=== PATIENT | female | born 1950 | race African-American/Black ===

== ENCOUNTER 2016-11-02 13:08 | Emergency (ER) | payer MEDICARE, OTHER ==
[2016-11-02 13:21] VITALS: BP 157/88
--- NOTE | 2016-11-02 13:50 | ER Document Report ---
HPI - HPI Patient complains to provider of: rash Onset: Other Onset/Duration: Sudden Quality of pain: Burning Severity: Mild Pain Level: 1 Context: Patient thinks she was bitten by something on her right posterior leg 3 days and now has a rash on her right leg, buttocks and abdomen. Rash is itchy. Associated Symptoms: None Exacerbated by: Denies Relieved by: Denies Similar symptoms previously: No Recently seen / treated by doctor: No - ROS ROS below otherwise negative: Yes Systems Reviewed and Negative: Yes All other systems reviewed and negative - CONSTITUTIONAL Constitutional: DENIES: Fever - EENT EENT: DENIES: Congestion - NEURO Neurology: DENIES: Headache - CARDIOVASCULAR Cardiovascular: DENIES: Chest pain - RESPIRATORY Respiratory: DENIES: Trouble Breathing - GASTROINTESTINAL Gastrointestinal: DENIES: Abdominal Pain - URINARY Urinary: DENIES: Dysuria - MUSCULOSKELETAL Musculoskeletal: DENIES: Extremity pain - DERM Skin Color: Normal Skin Problems: Rash Past Medical History - General Information source: Patient - Social History Smoking Status: Never Smoker Frequency of alcohol use: Occasional Drug Abuse: None Lives with: Spouse/Significant other Family History: Reviewed & Not Pertinent Patient has suicidal ideation: No Patient has homicidal ideation: No - Past Medical History Cardiac Medical History: Reports: Hx Hypertension Past Surgical History: Reports: Hx Orthopedic Surgery, Hx Tubal Ligation Vertical Provider Document - CONSTITUTIONAL Agree With Documented VS: Yes Exam Limitations: No Limitations General Appearance: WD/WN, No Apparent Distress - INFECTION CONTROL TRAVEL OUTSIDE OF THE [place] IN LAST 30 DAYS: No - HEENT HEENT: Atraumatic, Normocephalic - RESPIRATORY Respiratory: Breath Sounds Normal, No Respiratory Distress O2 Sat by Pulse Oximetry: 99 - CARDIOVASCULAR Cardiovascular: Regular Rate, Regular Rhythm - GI/ABDOMEN Gastrointestinal: Abdomen Soft, Abdomen Non-Tender - MUSCULOSKELETAL/EXTREMETIES Musculoskeletal/Extremeties: MAEW - NEURO Level of Consciousness: Awake, Alert, Appropriate - DERM Integumentary: Warm, Dry, Rash - Papular rash noted to right leg, buttocks, and abdomen. Excoriated area to posterior right knee. No surrounding erythema. Course - Vital Signs Vital signs: Temp Pulse Resp BP Pulse Ox 98.8 F 76 18 157/88 H 99 11/02/16 13:18 11/02/16 13:18 11/02/16 13:18 11/02/16 13:18 11/02/16 13:18 Discharge - Discharge Clinical Impression: Rash and nonspecific skin eruption Condition: Good Disposition: HOME, SELF-CARE Additional Instructions: take meds as prescribed bactroban ointment to lesion back of right knee, keep clean and dry OTC hydrocortisone to rest of rash follow up with your doctor next week for recheck return if worsens and as needed Prescriptions: Mupirocin [Bactroban 2% Ointment 22 gm] 1 applic TP TID #1 tube Prednisone [Deltasone 10 mg Tablet] 10 mg PO ASDIR PRN #21 tablet PRN Reason: Referrals: PRASHANTH NUNN MD [Primary Care Provider] - Follow up as needed
== END 2016-11-02 14:15 | disposition home or self-care (01) ==
LOC: ER 13:08
DX: R21 Rash and other nonspecific skin eruption (principal); M79.604 Pain in right leg
CPT/HCPCS: 99281

== ENCOUNTER 2018-07-18 13:50 | Emergency (ER) | payer MEDICARE, OTHER ==
[2018-07-18 14:06] VITALS: BP 147/95
[2018-07-18] MEDS ORDERED: IBUPROFEN 600 MG TABLET PO ONE (15:05)
--- NOTE | 2018-07-18 15:07 | ER Document Report ---
HPI - HPI Time Seen by Provider: 07/18/18 14:56 Pain Level: 2 Context: Patient is a 68-year-old's emergency department with a chief complaint of a possible boil in her jaw. She states that she has had pain for the past 5 days and has tried peroxide, mouthwashes, and an onion to help relieve her pain. She has not had any relief. She has not taken any ibuprofen or Tylenol today. She has been taking Aleve and ibuprofen at home. Has not had any relief from that. Does not have history of abscesses in the past. She denies any tooth pain, fever, shortness of breath, difficulty breathing, or any other symptoms. - CONSTITUTIONAL Constitutional: DENIES: Fever, Chills - EENT EENT: REPORTS: Eye problems. DENIES: Sore Throat, Ear Pain, Nasal Drainage- Clear, Congestion - NEURO Neurology: DENIES: Headache - RESPIRATORY Respiratory: DENIES: Trouble Breathing, Coughing - GASTROINTESTINAL Gastrointestinal: DENIES: Abdominal Pain - MUSCULOSKELETAL Musculoskeletal: DENIES: Extremity pain - DERM Skin Color: Normal Skin Problems: Pustule - At gumline of tooth #29 Past Medical History - General Information source: Patient - Social History Smoking Status: Never Smoker Frequency of alcohol use: Occasional Drug Abuse: None Family History: Reviewed & Not Pertinent Patient has suicidal ideation: No Patient has homicidal ideation: No - Past Medical History Cardiac Medical History: Reports: Hx Hypertension Renal/ Medical History: Denies: Hx Peritoneal Dialysis Past Surgical History: Reports: Hx Orthopedic Surgery, Hx Tubal Ligation Vertical Provider Document - CONSTITUTIONAL Agree With Documented VS: Yes Exam Limitations: No Limitations General Appearance: No Apparent Distress - INFECTION CONTROL TRAVEL OUTSIDE OF THE [place] IN LAST 30 DAYS: No - HEENT HEENT: Atraumatic, Normocephalic, PERRLA - NECK Neck: Normal Inspection - RESPIRATORY Respiratory: Breath Sounds Normal, No Respiratory Distress - CARDIOVASCULAR Cardiovascular: Regular Rate, Regular Rhythm Pulses: Normal: Radial - MUSCULOSKELETAL/EXTREMETIES Musculoskeletal/Extremeties: FROM - NEURO Level of Consciousness: Awake, Alert, Appropriate Motor/Sensory: No Motor Deficit, No Sensory Deficit - DERM Integumentary: Warm, Dry, Abscess - at gumline of tooth #29 Course - Re-evaluation Re-evalutation: 07/18/18 15:09 Differential diagnosis includes but not limited to: abscess, dermoid cyst, sebaceous cyst, furnucle, or others. Based on patient's physical exam and history, this is an abscess. It was drained in the ER with a 25 gauge needle at the gumline of tooth #29. There is no surrounding cellulitis. I do not believe the patient has underlying necrotizing fasciitis. Based on patient's physical exam and these factors, they will be treated with antibiotics. Verbal discharge instructions were given to the patient. They verbalized understanding. They are stable for discharge. - Vital Signs Vital signs: Temp Pulse Resp BP Pulse Ox 97.7 F 68 16 147/95 H 95 07/18/18 14:03 07/18/18 14:03 07/18/18 14:03 07/18/18 14:03 07/18/18 14:03 Procedures - Incision and Drainage Gumline at tooth #29 Type: Simple Incision Method: Incision made with needle Amount/type of drainage: purulent/blood; less than 1 ml Discharge - Discharge Clinical Impression: Abscess Condition: Stable Disposition: HOME, SELF-CARE Instructions: Post Incision and Drainage, Trimethoprim-Sulfa ([facility]) Additional Instructions: You were seen today in the emergency department for jaw pain. There was an abscess at your gumline. The abscess was drained here in the emergency department. You have been put on antibiotics. Please finish your antibiotics as prescribed. Please follow-up with your primary care provider in regards to this visit. If you have worsening symptoms, develop difficulty breathing, or have any symptoms that are worrisome to you, please return to the emergency department. Prescriptions: Sulfamethoxazole/Trimethoprim [Bactrim Ds Tablet] 1 each PO BID 7 Days #14 tablet Referrals: PRASHANTH NUNN MD [Primary Care Provider] - Follow up as needed
== END 2018-07-18 15:14 | disposition home or self-care (01) ==
LOC: ER 13:50
DX: K05.219 Aggressive periodontitis, localized, unspecified severity (principal); I10 Essential (primary) hypertension; Z98.51 Tubal ligation status
CPT/HCPCS: 99283; 41800; A9270

== ENCOUNTER → 2020-01-24 | Outpatient (CLI) | payer MEDICARE, OTHER ==
[2020-01-24 12:39] LABS: HEMATOCRIT 43.7 % (36.0-47.0); HEMOGLOBIN 14.5 g/dL (12.0-15.5); MEAN CORPUSCULAR HEMOGLOBIN 28.6 pg (27.0-33.4); MEAN CORPUSCULAR HGB CONC 33.2 g/dL (32.0-36.0); MEAN CORPUSCULAR VOLUME 86 fl (80-97); PLATELET COUNT 227 10^3/uL (150-450); RED BLOOD COUNT 5.08 10^6/uL (3.72-5.28); RED CELL DISTRIBUTION WIDTH 14.1 % (11.5-14.0)
[2020-01-24 12:44] LABS: APPEARANCE,URINE CLEAR; BILIRUBIN,URINE NEGATIVE (NEGATIVE); COLOR,URINE STRAW; GLUCOSE, URINE NEGATIVE (NEGATIVE); KETONES,URINE NEGATIVE (NEGATIVE); LEUKOCYTE ESTERASE,URINE NEGATIVE (NEGATIVE); NITRITE,URINE NEGATIVE (NEGATIVE); PROTEIN,URINE NEGATIVE (NEGATIVE); URINE SPECIFIC GRAVITY 1.003; UROBILINOGEN,URINE NEGATIVE mg/dL (<2.0)
[2020-01-24 13:06] LABS: BLOOD UREA NITROGEN 15 mg/dL (7-20)
[2020-01-24 13:35] LABS: ALBUMIN 4.5 g/dL (3.5-5.0); ANION GAP 14 (5-19); CALCIUM 9.8 mg/dL (8.4-10.2); CARBON DIOXIDE 24 mmol/L (22-30); CHLORIDE 103 mmol/L (98-107); GLUCOSE 101 mg/dL (75-110); PHOSPHORUS 3.4 mg/dL (2.5-4.5); POTASSIUM 4.1 mmol/L (3.6-5.0)
== END ==
LOC: OD 11:36
PROVIDERS: ATTEND Physician Assistant Medical
DX: N17.9 Acute kidney failure, unspecified (principal)
CPT/HCPCS: 36415; 80069; 81001; 85027